=== PATIENT | male | born 1965 | race Caucasian/White ===

== ENCOUNTER → 2017-01-01 | Outpatient (CLI) | payer OTHER ==
[~2017-01-01] MED LIST: ASPI81TA85 PO; CHLO25TA PO; FISH100049 PO; GLUC500C5 PO; GLUC750T22 PO; LISI-542 PO; VITA2000 PO
--- NOTE | 2017-01-02 01:46 | REP ---
Clinical: Pain. Technique: AP, lateral, bilateral oblique views left foot . Findings: The osseous structures and joint spaces are intact and normal. There is no evidence for acute fracture or dislocation. Surrounding soft tissues are unremarkable. No subcutaneous emphysema or radiodense foreign body. Impression: Age appropriate examination. No acute fracture or dislocation. Signed by Ryland Pickett MD 01/02/2017 01:37 A
== END ==
LOC: M ADAMS 14:38
PROVIDERS: ATTEND Physician Assistant
DX: M79.672 Pain in left foot (principal)

== ENCOUNTER → 2017-02-28 | Outpatient (REF) | payer OTHER ==
[2017-02-28 12:28] LABS: ALBUMIN 4.2 GM/DL (3.2-5.2); ALBUMIN/GLOBULIN RATIO 1.11 (1.00-1.93); ALKALINE PHOSPHATASE 108 U/L (45-117); ALT/SGPT 30 U/L (12-78); ANION GAP 10 MEQ/L (8-16); AST/SGOT 20 U/L (15-37); BILIRUBIN,TOTAL 0.6 MG/DL (0.2-1.0); BLOOD UREA NITROGEN 23 MG/DL (7-18); CALCIUM LEVEL 9.4 MG/DL (8.5-10.1); CARBON DIOXIDE LEVEL 30 MEQ/L (21-32); CHLORIDE LEVEL 100 MEQ/L (98-107); CHOLESTEROL LEVEL 201 MG/DL (<200); CREATININE FOR GFR 1.08 MG/DL (0.70-1.30); GLOMERULAR FILTRATION RATE > 60.0 (>56); GLUCOSE, FASTING 111 MG/DL (70-105); POTASSIUM SERUM 3.7 MEQ/L (3.5-5.1); SODIUM LEVEL 140 MEQ/L (136-145); TRIGLYCERIDES LEVEL 79 MG/DL (<150)
== END ==
LOC: M SFHCPLAZ 08:02
PROVIDERS: ATTEND Family Medicine
DX: I10 Essential (primary) hypertension (principal); Z13.220 Encounter for screening for lipoid disorders; R73.01 Impaired fasting glucose; Z68.32 Body mass index [BMI] 32.0-32.9, adult; E55.9 Vitamin D deficiency, unspecified

== ENCOUNTER → 2019-11-11 | Outpatient (CLI) | payer OTHER ==
[~2019-11-11] MED LIST changes: +CHLO125TA PO; -CHLO25TA PO
--- NOTE | 2019-11-12 02:26 | REPPI ---
Clinical: Nontraumatic right knee pain. Technique: AP, lateral, bilateral oblique and sunrise views. Findings: [place] view demonstrates increase sclerosis along the posterior patellar margin with minimal patellofemoral joint space narrowing and small marginal spurring. AP and oblique views demonstrate subtle increase sclerosis to the tibial plateau with minimal medial joint space narrowing and mild chondrocalcinosis. No acute fracture or dislocation. No significant swelling or obvious effusion. Impression: Mild degenerative changes. Electronically Signed by Ryland Pickett MD 11/12/2019 02:17 A
== END ==
LOC: M PLAIMG 08:59
PROVIDERS: ATTEND Family Medicine
DX: M25.561 Pain in right knee (principal); M17.11 Unilateral primary osteoarthritis, right knee

== ENCOUNTER → 2019-12-15 | Outpatient (CLI) | payer OTHER | LOC: M LABSMTC 10:48 | PROVIDERS: ATTEND Orthopaedic Surgery | DX: Z03.818 Encounter for observation for suspected exposure to other biological agents ruled out (principal); Z11.59 Encounter for screening for other viral diseases ==

== ENCOUNTER → 2019-12-16 | Outpatient (CLI) | payer OTHER ==
[2019-12-16 11:54] LABS: HEMATOCRIT 45.5 % (42.0-52.0); HEMOGLOBIN 15.1 g/dl (13.5-17.5); PLATELET COUNT, AUTOMATED 217 10^3/uL (150-450); WHITE BLOOD COUNT 9.2 10^3/uL (4.0-10.0)
--- NOTE | 2019-12-16 12:25 | ECGEPIP ---
[facility] Test Date: 2019-12-16 Pat Name: MELISSA ALCANTAR Department: Room: - Gender: Male Insulation Technician: MAYUR : 1965 Requested By: JOSELITO Pederson Order Number: [id number] Reading MD: Neeru Head Measurements Intervals [place] Rate: 66 P: 58 NC: 201 QRS: 6 QRSD: 98 T: 35 QT: 382 QTc: 403 Interpretive Statements SINUS RHYTHM BORDERLINE [address]ST DEG[address] BLOCK NONSPECIFIC ST T ABN NO PRIOR Electronically Signed on 12-16-2019 12:25:19 EDT by Neeru Head
[2019-12-16 12:27] LABS: BLOOD UREA NITROGEN 20 MG/DL (7-18); CARBON DIOXIDE LEVEL 29 MEQ/L (21-32); CHLORIDE LEVEL 106 MEQ/L (98-107); CREATININE FOR GFR 0.85 MG/DL (0.70-1.30); GLOMERULAR FILTRATION RATE > 60.0 (>56); GLUCOSE, FASTING 99 MG/DL (70-100); POTASSIUM SERUM 3.8 MEQ/L (3.5-5.1); SODIUM LEVEL 139 MEQ/L (136-145)
== END ==
LOC: M LAB 10:44
PROVIDERS: ATTEND Orthopaedic Surgery
DX: Z01.818 Encounter for other preprocedural examination (principal); I10 Essential (primary) hypertension

== ENCOUNTER → 2022-02-08 | Outpatient (CLI) | payer BC, OTHER ==
[~2022-02-08] MED LIST changes: -ASPI81TA85 PO; +ASPI81TA86 PO; -LISI-542 PO; +LISI5TAB11 PO
[2022-02-08 14:22] LABS: ALBUMIN 3.9 GM/DL (3.2-5.2); ALT/SGPT 35 U/L (12-78); BILIRUBIN,TOTAL 0.7 MG/DL (0.2-1.0); BLOOD UREA NITROGEN 19 MG/DL (7-18); CALCIUM LEVEL 9.2 MG/DL (8.5-10.1); CARBON DIOXIDE LEVEL 31 MEQ/L (21-32); CHLORIDE LEVEL 102 MEQ/L (98-107); CHOLESTEROL LEVEL 219 MG/DL (<200); CHOLESTEROL RISK RATIO 2.844 (<5); GLOMERULAR FILTRATION RATE > 60.0 (>56); GLUCOSE, FASTING 110 MG/DL (70-100); HDL CHOLESTEROL 77 MG/DL (>40); LDL CHOLESTEROL 130 MG/DL (<100); NON-HDL-C 142 MG/DL; SODIUM LEVEL 137 MEQ/L (136-145); TOTAL PROTEIN 8.1 GM/DL (6.4-8.2); TRIGLYCERIDES LEVEL 58 MG/DL (<150)
[2022-02-08 14:44] LABS: HEMOGLOBIN A1c 5.4 %
[2022-02-08 15:00] LABS: MALB URINE SIEMENS 8.4 MG/L; MAU/CREAT RATIO 6.3 MCG/MG (0.0-30.0); TOTAL 25(OH) VITAMIN D 37.8 NG/ML (30.0-100.0)
== END ==
LOC: M PLALAB 11:14
PROVIDERS: ATTEND Family Medicine
DX: R73.01 Impaired fasting glucose (principal); I10 Essential (primary) hypertension; E55.9 Vitamin D deficiency, unspecified; Z13.220 Encounter for screening for lipoid disorders

== ENCOUNTER 2025-05-23 15:22 | Observation (INO) | payer MEDICAID, OTHER, SELFPAY ==
[~2025-05-23] VITALS: Ht 177.8 cm; Wt 91.1 kg
[2025-05-23 16:07] LABS: BASO # 0.0 10^3/uL (0.0-0.2); BASO % 0.3 % (0.0-1.0); EOS # 0.1 10^3/uL (0.0-0.5); EOS % 0.5 % (0.0-3.0); LYMPH # 1.9 10^3/uL (1.5-5.0); LYMPH % 16.5 % (24.0-44.0); MONO # 0.9 10^3/uL (0.0-0.8); MONO % 7.4 % (2.0-8.0); NEUTROPHILS # 8.8 10^3/uL (1.5-8.5); NEUTROPHILS % 75.0 % (36.0-66.0); PLATELET COUNT, AUTOMATED 268 10^3/uL (150-450)
[2025-05-23 16:38] LABS: ALT/SGPT 25 U/L (7.0-40); AST/SGOT 33 U/L (<34); CALCIUM LEVEL 9.1 MG/DL (8.3-10.6); CARBON DIOXIDE LEVEL 27 MMOL/L (20-31); CHLORIDE LEVEL 103 MMOL/L (98-107); CREATININE FOR GFR 0.84 MG/DL (0.70-1.30); GLOMERULAR FILTRATION RATE > 90.0 (>49); POTASSIUM SERUM 4.1 MMOL/L (3.5-5.1); SODIUM LEVEL 139 MMOL/L (136-145)
[2025-05-23] MEDS: **hydrALAZINE HCL** 25 MG TAB PO ONE (17:47)
[2025-05-23 18:13] LABS: APPEARANCE, URINE CLEAR (CLEAR); BACTERIA, URINE AUTO NEGATIVE (NEGATIVE); BILIRUBIN, URINE AUTO NEGATIVE (NEGATIVE); BLOOD, URINE BLOOD NEGATIVE (NEGATIVE); GLUCOSE, URINE (UA) AUTO NEGATIVE (NEGATIVE); KETONE, URINE AUTO 1+ mg/dL (NEGATIVE); LEUKOCYTE ESTERASE, URINE AUTO NEGATIVE (NEGATIVE); MUCUS, URINE SMALL (NEGATIVE); NITRITE, URINE AUTO NEGATIVE (NEGATIVE); PROTEIN, URINE AUTO NEGATIVE (NEGATIVE); RBC, URINE AUTO 1 /HPF (0-3); SPECIFIC GRAVITY URINE AUTO 1.013 (1.002-1.035); SQUAMOUS EPITHELIAL CELL UR AU 0 /HPF (0-6); UROBILINOGEN, URINE AUTO 0.2 mg/dL (0.0-2.0); WBC, URINE AUTO 1 /HPF (0-3)
[2025-05-23] MEDS: hydrALAZINE 20 MG/ML 1 ML VIAL IV STA (20:17)
[2025-05-24] VITALS (11 sets, daily range): BP systolic 141–216; BP diastolic 67–105; TEMP 97.7–100.7; O2SAT 94–100
[2025-05-24] MEDS ORDERED: HOME MED LIST COMPLETE! XX SCH (00:35)
[2025-05-24] MEDS ORDERED: PILL CUTTER 1 EACH XX PRN (01:00)
[2025-05-24] MEDS ORDERED: CHLORTHALIDONE 12.5 MG PER 1/2 TABLET PO SCH (01:00)
[2025-05-24] MEDS: amLODIPine 5 MG TAB PO SCH ×2 (01:31→10:03)
[2025-05-24] MEDS: CHLORTHALIDONE 25 MG TAB PO SCH (01:31)
[2025-05-24] MEDS: LABETALOL 100 MG/20 ML VIAL IV STA (01:47)
[2025-05-24 05:20] LABS: PLATELET COUNT, AUTOMATED 253 10^3/uL (150-450)
[2025-05-24 05:54] LABS: CALCIUM LEVEL 8.6 MG/DL (8.3-10.6); CARBON DIOXIDE LEVEL 28 MMOL/L (20-31); CHLORIDE LEVEL 106 MMOL/L (98-107); CREATININE FOR GFR 0.84 MG/DL (0.70-1.30); GLOMERULAR FILTRATION RATE > 90.0 (>49); POTASSIUM SERUM 4.1 MMOL/L (3.5-5.1); SODIUM LEVEL 141 MMOL/L (136-145)
[2025-05-24] MEDS: HEPARIN SOD 5000 UNITS/ML 1 ML VIAL/SYRINGE SC SCH (08:13)
[2025-05-24] MEDS: **hydrALAZINE HCL** 25 MG TAB PO SCH (08:13)
[2025-05-24] MEDS ORDERED: AMLO1TAB24 PO (15:32)
[2025-05-24] MEDS ORDERED: METO1TAB7 PO (15:32)
[2025-05-24] MEDS: PNEUMOC 21-VAL CONJ-DIP CRM/PF 0.5 ML SYRINGE IM.IMMUN ONE (16:49)
[2025-05-24] MEDS ORDERED: METOPROLOL SUCC. 50 MG *XL* TAB PO SCH (21:00)
== END 2025-05-24 17:00 | disposition home or self-care (01) ==
LOC: M ED 15:22 → M ED INP 15:23 → M MS4PR 05-24 00:20 → M PCU 05-24 02:20
PROVIDERS: ADMIT Student in an Organized Health Care Education/Training Program; ATTEND Student in an Organized Health Care Education/Training Program
DX: I16.0 Hypertensive urgency (principal); N20.0 Calculus of kidney; F41.9 Anxiety disorder, unspecified; I10 Essential (primary) hypertension; Z82.49 Family history of ischemic heart disease and other diseases of the circulatory system; Z79.899 Other long term (current) drug therapy; Z23 Encounter for immunization
CPT/HCPCS: 36415; 70450; 71045; 76775; 80048; 80053; 81001; 83835; 85025; 85027; 87486; 87581; 87633; 87798; 90471; 90684; 93005; 93041; 93306; 93975; 96372; 96374; 96375; 99285; J0360; J2060

== ENCOUNTER → 2025-05-28 | Outpatient (CLI) | payer OTHER ==
[~2025-05-28] MED LIST changes: +AMLO1TAB24 PO; +METO1TAB7 PO
[2025-05-28 15:26] LABS: CHOLESTEROL LEVEL 198.0 MG/DL (<200); CHOLESTEROL RISK RATIO 3.76 (<5); LDL CHOLESTEROL 132.2 MG/DL (<100); NON-HDL-C 145.4 MG/DL; TRIGLYCERIDES LEVEL 66.0 MG/DL (<150)
[2025-05-28 15:30] LABS: FREE T4 1.41 NG/DL (0.89-1.76)
[2025-05-30 02:16] LABS: DEHYDROEPIANDROSTERONE SULFATE 33 mcg/dL (20-217)
== END ==
LOC: M PLALAB 10:53
DX: F41.1 Generalized anxiety disorder (principal); E78.5 Hyperlipidemia, unspecified